=== PATIENT | female | born 1960 | race Two or more races ===

== ENCOUNTER 2025-06-10 19:12 | Outpatient (CLI) | payer MEDICARE, SELFPAY | END 2025-06-10 19:13 | disposition home or self-care (01) | LOC: AMB 06-19 08:52 | PROVIDERS: Visit Provider Family Medicine | DX: S89.92XA Unspecified injury of left lower leg, initial encounter (principal); S49.92XA Unspecified injury of left shoulder and upper arm, initial encounter; S29.9XXA Unspecified injury of thorax, initial encounter; V49.50XA Passenger injured in collision with unspecified motor vehicles in traffic accident, initial encounter; Y92.410 Unspecified street and highway as the place of occurrence of the external cause | CPT/HCPCS: A0425; A0433 ==